=== PATIENT | female | born 1990 | race American Indian/Alaskan Native ===

== ENCOUNTER 2017-12-02 13:04 | Emergency (ER) | payer SELFPAY ==
[2017-12-02 13:15] VITALS: BP 135/84
--- NOTE | 2017-12-02 14:37 | Emergency Department Report ---
HPI - General Chief Complaint: Urogenital-Female Time Seen by Provider: 12/02/17 14:34 - HPI HPI: Healthy 27-year-old female presents with symptoms of UTI. She has dysuria, she has urinary frequency and urgency. She has malodorous urine. Mild symptoms. Gradual onset on Tuesday. She denies fever. Denies back pain. ED Past Medical Hx - Past Medical History Hx Headaches / Migraines: Yes - Surgical History Past Surgical History?: Yes Additional Surgical History: C-sect 2008 - Social History Smoking Status: Never Smoker Substance Use Type: None - Medications Home Medications: Home Medications Medication Instructions Recorded Confirmed Last Taken Type Cyclobenzaprine [Flexeril 10mg] 10 mg PO TID PRN #14 tablet 05/04/14 Unknown Rx HYDROcodone/APAP 5-325 [[place] 1 each PO Q6HR PRN #14 tablet 05/04/14 Unknown Rx 5/325] Ibuprofen [Motrin 800 MG tab] 800 mg PO Q8H #30 tablet 05/04/14 Unknown Rx Cephalexin [Keflex] 500 mg PO Q6HR 7 Days #28 capsule 12/02/17 Unknown Rx Phenazopyridine [Pyridium] 200 mg PO TID 2 Days #6 tab 12/02/17 Unknown Rx ED Review of Systems ROS: Stated complaint: PAINFUL URINATIONS Other details as noted in HPI Comment: All other systems reviewed and negative Constitutional: denies: chills, fever Respiratory: denies: cough Cardiovascular: denies: chest pain Physical Exam - Physical Exam Vital Signs: Vital Signs 12/02/17 13:12 Temperature 98.2 F Pulse Rate 74 Respiratory 18 Rate Blood Pressure 135/84 O2 Sat by Pulse 97 Oximetry Physical Exam: General: Well-appearing, no acute distress HEENT: Normocephalic atraumatic pupils equal round and reactive to light anicteric sclera Nose: no rhinorrhea Oropharynx: Clear mucous membranes no lesions Neck: supple, no meningismus Chest: Clear to auscultation bilaterally no rales rhonchi no wheezes Cardiac: Regular rate and rhythm no murmurs no rubs no gallops Neck: No CVA tenderness Abdomen: Soft nontender nondistended positive bowel sounds no guarding Extremities: No cyanosis no clubbing no edema Neuro: Moves all extremities 4, no gross deficits Psychiatric: Alert and oriented 4 normal aspect normal judgment normal insight ED Course Vital Signs 12/02/17 13:12 Temperature 98.2 F Pulse Rate 74 Respiratory 18 Rate Blood Pressure 135/84 O2 Sat by Pulse 97 Oximetry ED Medical Decision Making - Medical Decision Making Ms. Johnson is a well-appearing female with symptoms of UTI. I prescribed cephalexin and Pyridium. Also gave her treatment instructions. Critical care attestation.: If time is entered above; I have spent that time in minutes in the direct care of this critically ill patient, excluding procedure time. ED Disposition Clinical Impression: Urinary tract infection Disposition: - TO HOME OR SELFCARE Is pt being admited?: No Does the pt Need Aspirin: No Condition: Stable Instructions: Urinary Tract Infection in Women (ED) Prescriptions: Cephalexin [Keflex] 500 mg PO Q6HR 7 Days #28 capsule Phenazopyridine [Pyridium] 200 mg PO TID 2 Days #6 tab Referrals: PRIMARY CARE, [Primary Care Provider] - 3-5 Days Time of Disposition: 14:37
== END 2017-12-02 14:51 | disposition home or self-care (01) ==
LOC: ED 13:04
DX: N39.0 Urinary tract infection, site not specified (principal); G43.909 Migraine, unspecified, not intractable, without status migrainosus
CPT/HCPCS: 99282